=== PATIENT | male | born 1980 | race Two or more races ===

== ENCOUNTER 2024-07-10 10:50 | Emergency (ER) | payer OTHER ==
[~2024-07-10] VITALS: Ht 167.6 cm; Wt 88.5 kg
[2024-07-10] MEDS ORDERED: GUAI5SYR4 PO (11:38)
[2024-07-10 11:48] VITALS: BP 124/92; O2SAT 95
== END 2024-07-10 11:49 | disposition home or self-care (01) ==
LOC: ER 11:01
DX: J40 Bronchitis, not specified as acute or chronic (principal)
CPT/HCPCS: A4606; A4663